=== PATIENT | male | born 1960 | race Caucasian/White ===

== ENCOUNTER 2018-09-25 14:39 | Emergency (ER) | payer BC ==
--- NOTE | 2018-09-25 16:23 | ER ---
Nurse's Notes [facility] Name: Mahamed Arriaga Age: 58 yrs Sex: Male : 1960 Arrival Date: 09/25/2018 Time: 14:39 Bed 6 Private MD: Gustavo Merlos Diagnosis: Nondisplaced fracture of distal phalanx of right great toe Presentation: 09/25 15:07 Presenting complaint: Patient states: R first toe pain, swelling and bruising that ss began yesterday after kicking furniture. Transition of care: patient was not received from another setting of care. Onset of symptoms was September 24, 2018. Risk Assessment: Do you want to hurt yourself or someone else? Patient reports no desire to harm self or others. Initial Sepsis Screen: Does the patient meet any 2 criteria? No. Patient's initial sepsis screen is negative. Does the patient have a suspected source of infection? No. Patient's initial sepsis screen is negative. Care prior to arrival: None. 15:07 Method Of Arrival: Ambulatory ss 15:07 Acuity: VERONIKA 4 ss Historical: - Allergies: 15:08 No Known Allergies; ss - Immunization history:: Adult Immunizations up to date. - Social history:: Smoking status: Patient/guardian denies using tobacco. - Ebola Screening: : Patient denies exposure to infectious person Patient denies travel to an Ebola-affected area in the 21 days before illness onset. Screenin:56 Abuse screen: Denies threats or abuse. Denies injuries from another. Nutritional ph screening: No deficits noted. Tuberculosis screening: No symptoms or risk factors identified. Fall Risk None identified. Assessment: 15:30 General: Appears in no apparent distress. comfortable, well groomed, Behavior is calm, ph cooperative, appropriate for age. Pain: Complains of pain in right first toe. Neuro: Level of Consciousness is awake, alert, obeys commands, Oriented to person, place, time, situation. Cardiovascular: Capillary refill < 3 seconds in bilateral fingers Patient's skin is warm and dry. Respiratory: Airway is patent Respiratory effort is even, unlabored. Derm: Skin is intact, Skin is pink, warm \T\ dry. Bruising that is dark purple, green, on right second toe and right first toe. Musculoskeletal: Circulation, motion, and sensation intact. Range of motion: intact in all extremities, Swelling present in right first toe. Vital Signs: 15:06 BP 138 / 90; Pulse 77; Resp 15; Temp 97.5(TE); Pulse Ox 97% on R/A; Weight 106.59 kg ss (R); Height 5 ft. 9 in. (175.26 cm); Pain 4/10; 15:06 Body Mass Index 34.70 (106.59 kg, 175.26 cm) ED Course: 14:39 Patient arrived in ED. sb2 14:40 Gustavo Merlos MD is Private Physician. sb2 15:06 Arm band placed on left wrist. ss 15:08 Triage completed. ss 15:10 Dhiraj Salinas PA is PHCP. cp 15:10 Raymond Chavez MD is Attending Physician. cp 15:10 Osorio Leach, RN is Primary Nurse. sg 16:02 XRAY Foot RIGHT 3 View In Process Unspecified. EDMS 16:22 Gustavo Merlos MD is Referral Physician. cp 16:25 Silver tape plantar aspect of right first toe, plantar aspect of right second toe, right dh3 first toe and right second toe Ortho shoe applied to right foot. 16:58 Patient has correct armband on for positive identification. Bed in low position. Call ph light in reach. 16:58 No provider procedures requiring assistance completed. Patient did not have IV access ph during this emergency room visit. Administered Medications: No medications were administered Outcome: 16:23 Discharge ordered by MD. cp 16:58 Discharged to home ambulatory, with significant other. ph 16:58 Condition: good 16:58 Discharge instructions given to patient, Instructed on discharge instructions, follow up and referral plans. medication usage, Demonstrated understanding of instructions, follow-up care, medications, Prescriptions given X 2. 16:59 Patient left the ED. ph Signatures: Dispatcher [employer] EDMS Osorio Leach RN RN Roseann Mcneal RN RN Betty Mckenzie RN RN Dhiraj Salinas PA PA cp Herrera, [facility] [place] sb2
--- NOTE | 2018-09-25 16:23 | EDPHYS ---
Physician Documentation [facility] Name: Mahamed Arriaga Age: 58 yrs Sex: Male : 1960 Arrival Date: 09/25/2018 Time: 14:39 Bed 6 Private MD: Gustavo Merlos ED Physician Raymond Chavez HPI: 09/25 15:20 This 58 yrs old Male presents to ER via Ambulatory with complaints of Toe cp Injury. 15:20 The patient presents with an injury, pain, that is acute. The complaints affect the cp right first toe. Context: resulted from the patient kicking, furniture. 15:20 Onset: The symptoms/episode began/occurred yesterday. cp 15:20 Associated signs and symptoms: Pertinent negatives: calf tenderness, fever, numbness, cp warmth. Historical: - Allergies: 15:08 No Known Allergies; ss - Immunization history:: Adult Immunizations up to date. - Social history:: Smoking status: Patient/guardian denies using tobacco. - Ebola Screening: : Patient denies exposure to infectious person Patient denies travel to an Ebola-affected area in the 21 days before illness onset. ROS: 15:25 Constitutional: Negative for body aches, chills, fever. cp 15:25 Eyes: Negative for injury, pain, redness, and discharge. cp 15:25 Cardiovascular: Negative for chest pain. 15:25 Respiratory: Negative for cough, wheezing. 15:25 Abdomen/GI: Negative for abdominal pain, nausea, vomiting, and diarrhea. 15:25 MS/extremity: Positive for ecchymosis, pain, swelling, tenderness, of the right first toe, Negative for paresthesias. 15:25 All other systems are negative. Exam: 15:33 Constitutional: The patient appears in no acute distress, alert, awake, non-toxic, well cp developed, well nourished. 15:33 Head/Face: Normocephalic, atraumatic. cp 15:33 Eyes: Periorbital structures: appear normal, Conjunctiva: normal, no exudate, no injection, Lids and lashes: appear normal, bilaterally. 15:33 ENT: External ear(s): are unremarkable, Nose: is normal, Mouth: is normal, Posterior pharynx: Airway: no evidence of obstruction, patent. 15:33 Chest/axilla: Inspection: normal. 15:33 Cardiovascular: Rate: normal. 15:33 Respiratory: the patient does not display signs of respiratory distress, Respirations: normal. 15:33 Abdomen/GI: Exam negative for discomfort, distension, guarding, Inspection: abdomen appears normal. 15:33 Musculoskeletal/extremity: Extremities: grossly normal except: noted in the right first toe: ecchymosis, pain, swelling, tenderness, There is no evidence of decreased ROM, deformity, Perfusion: the extremity is normally perfused throughout, Sensation intact. 15:33 Skin: cellulitis, is not appreciated, no rash present. Vital Signs: 15:06 BP 138 / 90; Pulse 77; Resp 15; Temp 97.5(TE); Pulse Ox 97% on R/A; Weight 106.59 kg ss (R); Height 5 ft. 9 in. (175.26 cm); Pain 4/10; 15:06 Body Mass Index 34.70 (106.59 kg, 175.26 cm) Procedures: 16:35 Splinting: Splint applied to right foot using post op shoe, nile taping of toes. cp applied by tech. Examined by me, post splint application: neurovascular intact, Patient tolerated well. MDM: 15:11 Patient medically screened. cp 16:21 Data reviewed: vital signs, nurses notes, radiologic studies, plain films. cp 16:21 Differential diagnosis: fracture, gout, cellulitis, contusion. Test interpretation: by ED physician or midlevel provider: plain radiologic studies. Counseling: I had a detailed discussion with the patient and/or guardian regarding: the historical points, exam findings, and any diagnostic results supporting the discharge/admit diagnosis, radiology results, the need for outpatient follow up, a family practitioner, to return to the emergency department if symptoms worsen or persist or if there are any questions or concerns that arise at home. Response to treatment: the patient's symptoms have markedly improved after treatment, and as a result, I will discharge patient. 09/25 15:15 Order name: XRAY Foot RIGHT 3 View; Complete Time: 16:46 cp 09/25 16:46 Interpretation: Report reviewed. 09/25 16:13 Order name: Post-op shoe; Complete Time: 16:32 cp 09/25 16:13 Order name: Misc. Order: nile tape toes; Complete Time: 16:32 cp Administered Medications: No medications were administered Disposition: 09/25/18 16:23 Discharged to Home. Impression: Nondisplaced fracture of distal phalanx of right great toe. - Condition is Stable. - Discharge Instructions: Toe Fracture. - Prescriptions for Anaprox DS 550 mg Oral Tablet - take 1 tablet by ORAL route every 12 hours As needed; 20 tablet. Tramadol 50 mg Oral Tablet - take 1 tablet by ORAL route every 8 hours As needed as needed; 20 tablet. - Medication Reconciliation Form, Thank You Letter, Antibiotic Education, Prescription Opioid Use form. - Follow up: Gustavo Merlos MD; When: 1 week; Reason: Recheck today's complaints. - Problem is new. - Symptoms have improved. Addendum: 09/26/2018 18:45 Co-signature as Attending Physician, Raymond Chavez MD. g s Signatures: Dispatcher [employer] EDMS Roseann Mcneal RN RN ss Hall, Patricia, RN RN ph Dhiraj Salinas, PA PA cp Raymond Chavez MD MD Corrections: (The following items were deleted from the chart) 09/25 16:47 16:23 09/25/2018 16:23 Discharged to Home. Impression: Nondisplaced fracture of distal cp phalanx of right great toe. Condition is Stable. Forms are Medication Reconciliation Form, Thank You Letter, Antibiotic Education, Prescription Opioid Use. Follow up: Gustavo Merlos; When: 1 week; Reason: Recheck today's complaints. Problem is new. Symptoms have improved. cp 16:59 16:47 09/25/2018 16:23 Discharged to Home. Impression: Nondisplaced fracture of distal ph phalanx of right great toe. Condition is Stable. Discharge Instructions: Toe Fracture. Prescriptions for Anaprox DS 550 mg Oral Tablet - take 1 tablet by ORAL route every 12 hours As needed; 20 tablet, Tramadol 50 mg Oral Tablet - take 1 tablet by ORAL route every 8 hours As needed as needed; 20 tablet. and Forms are Medication Reconciliation Form, Thank You Letter, Antibiotic Education, Prescription Opioid Use. Follow up: Gustavo Merlos; When: 1 week; Reason: Recheck today's complaints. Problem is new. Symptoms have improved. cp
--- NOTE | 2018-09-25 16:42 | RAD REPORT ---
EXAM DESCRIPTION: RAD - Foot Right 3 View - 09/25/2018 4:02 pm CLINICAL HISTORY: Right foot pain status post injury FINDINGS: Minimally displaced fracture involves the base of the first distal phalanx. Additional non displaced fracture of the first terminal tuft suspected. No dislocation seen
[2018-09-25 17:21] VITALS: BP 138/90; TEMP 97.5; O2SAT 97
== END 2018-09-25 16:59 | disposition home or self-care (01) ==
LOC: ER 14:39
DX: S92.424A Nondisplaced fracture of distal phalanx of right great toe, initial encounter for closed fracture (principal); W22.03XA Walked into furniture, initial encounter; Y93.9 Activity, unspecified; Y92.9 Unspecified place or not applicable
CPT/HCPCS: 99283

== ENCOUNTER 2024-04-20 10:19 | Emergency (ER) | payer BC ==
--- OUTSIDE RECORDS SUMMARY | 2024-04-20 10:22 | XMS REPORT | Continuity of Care Document ---
Author Name Unknown Address 1200 [facility] [address] [facility] Address 1200 [facility]. 1 495 [place] [address] Care Team Providers Care Instant Printer Operator Name Role Phone Maria L Castorena Cardiology Attending Clinician Unavailable Pete Marquez Admitting Clinician Unavailable Payers Payer Name Policy Type Policy Number Effective Date Expirati on Date Source Allergies, Adverse Reactions, Alerts Allergy Name Allergy Type Status Severity Reaction(s) Onset Date Inactive Date Treating Clinician Comments Source No Known Allergie s DA Active U 01-26 00:00: 00 [facility] Encounters Start Date/Time End Date/Time Encounter Type Admission Type Attending Clinicians Care Facility Care Department Encounter ID Source 2024-01-30 10:34:00 2024-01-31 10:39:00 Inpatient Maria L Flores [facility] MEDI.01 [id number] [facility] 2021-07-18 00:00:00 2021-07-18 00:00:00 Outpatient PRIV PRIV [id number] [facility] Results Test Description Test Time Test Comments Results Result Co mments Source CBC W/AUTO [id number] 05:21:00* Test Item Value Reference Range Interpretation Comme nts WHITE BLOOD CELL (test code = WBC) 7.9 K/mm3 3.5-11.0 N RED BLOOD CELL (test code = RBC) 4.47 M/mm3 4.70-6.10 L HEMOGLOBIN (test code = HGB) 14.2 G/DL 12.3-15.9 N HEMATOCRIT (test code = HCT) 40.8 % 35.8-46.7 N MEAN CELL VOLUME (test code = MCV) 91.3 Fl 86.3-98.9 N MEAN CELL HGB (test code = MCH) 31.8 pg 28.9-34.4 N MEAN CELL HGB CONCETRATION (test code = MCHC) 34.8 G/DL 32.1-34.5 H RED CELL DISTRIBUTION WIDTH (test code = RDW) 12.4 SD 11.5-14.5 N PLATELET COUNT (test code = PLT) 203 K/mm3 150-450 N MEAN PLATELET VOLUME (test c ode = MPV) 10.00 fL 7.0-9.6 H NEUTROPHIL % (test code = NT%) 60.8 % 40-76 N IMMATURE GRANULOCYTE % (test code = IG%) 0.4 % 0.0-5.0 N LYMPHOCYTE % (test code = LY%) 24.3 % 20.5-51.1 N MONOCYTE % (test code = MO%) 10.3 % 1.7-9.3 H EOSINOPHIL % (test code = EO%) 3.6 % 0.0-6.0 N BASOPHIL % (test code = BA%) 0.6 % 0.0-2.0 N NUCLEATED RBC % (test code = NRBC%) 0.0 /100WBC% 0.0-1.0 N NEUTROPHIL # (test code = NT#) 4.8 K/mm3 1.8-7.6 N IMMATURE GRANULOCYTE # (test code = IG#) 0.03 x10 3/uL 0.00-0.03 N LYMPHOCYTE # (test code = LY#) 1.9 K/mm3 0.6-3.0 N MONOCYTE # (test code = MO#) 0.8 K/mm3 0.2-1.5 N EOSINOPHIL # (test code = EO#) 0.3 K/mm3 0.0-0.4 N BASOPHIL # (test code = BA#) 0.1 K/mm3 0.0-0.2 N NUCLEATED RBC # (test code = NRBC#) 0.0 K/mm3 0.00-0.01 N COAGULATION TIME [id number] 12:44:00* Test Item Value Reference Range Interpretation Comme nts COAGULATION TIME ACTIVATED ( test code = ACT) 343 SEC 110-182 H COMPREHENSIVE METABOLIC [id number] 11:36:00* Test Item Value Reference Range Interpretation Comme nts SODIUM (test code = NA) 142 mmol/L 136-145 N POTASSIUM (test code = K) 4.1 mmol/L 3.4-5.0 N CHLORIDE (test code = CL) 103 mmol/L 98-107 N CARBON DIOXIDE (test code = CO2) 27 mmol/L 21-32 N ANION GAP (test code = GAP) 12 GAP calc 4-15 N GLUCOSE (test code = GLU) 113 MG/DL 70-110 H BLOOD UREA NITROGEN (test code = BUN) 14 MG/DL 7-18 N GLOMERULAR FILTRATION RATE (test code = GFR) >=60 max estimate estGFR >60 The Glomerular Filtration Rate is a calculated parameterbased on serum Creatinine, patient age and sex. GFR valuesless than 60 mL/min/1.73 square meters are indicative ofChronic Kidney Disease. Values less than 15 mL/min/1.73square meters indicate Kidney failure. The calculation forGFR is based on the CKD-EPI (2020) calculation. This formulais race indifferent and is the recommended formula for GFRby the National Kidney Foundation for Adults.The GFR will not calculate if the sex is unknown or if thepatient's age is <18 years. CREATININE (test code = CREAT) 1.0 MG/DL 0.6-1.0 N TOTAL PROTEIN (test code = PROT) 8.3 G/DL 6.4-8.2 H ALBUMIN (test code = ALB) 4.1 G/DL 3.4-5.0 N GLOBULIN (test code = GLOB) 4.2 GM/dL ALBUMIN/GLOBULIN RATIO (test code = A/G) 1.0 RATIO 1.2-2.2 L CALCIUM (test code = CA) 9.3 MG/DL 8.5-10.1 N BILIRUBIN TOTAL (test code = BILT) 0.6 MG/DL 0.0-1.0 N SGOT/AST (test code = AST) 23 Unit/L 15-37 N SGPT/ALT (test code = ALT) 41 Unit/L 30-65 N ALKALINE PHOSPHATASE TOTAL (test code = ALKP) 66 Unit/L 50-136 N LIPID PROFILE (CORONARY RISK)2024-01-30 11:36:00* Test Item Value Reference Range Interpretation Comme nts TRIGLYCERIDES (test code = TRIG) 104 MG/DL 0-150 N CHOLESTEROL (test code = CHOL) 129 MG/DL 133-200 L CHOLESTEROL/HDL RATIO (test code = CHOLHDL) 3.31 RATIO See_Comment RISK ASSOC IATED WITH CHOL/HDL RATIOS: RISK MALE FEMALE1/2 AVERAGE 3.43 3.27AVERAGE 4.97 4.442X AVERAGE 9.55 7.053X AVERAGE 23.39 11.04 NOTE THAT THE REFERENCE VALUE IS RELATED TO RISK LEVELS ASRECOMMENDED BY THE [facility]. [Automated message] The system which generated this result transmitted reference range: 0-. The reference range was not used to interpret this result as normal/abnormal. HDL CHOLESTEROL (test code = HDL) 39 MG/DL See_Comment L [Automated Saranas] The system which generated this result transmitted reference range: 60-. The reference range was not used to interpret this result as normal/abnormal. NON-HDL CHOLESTEROL (test code = NHDL) 90 mg/dL <130 LIPOPROTEIN LDL (test code = LDL) 80 MG/DL 0-129 N LDL/HDL (test code = LDL/HDL) 2.05 Ratio See_Comment N [Automated Saranas] The system which generated this result transmitted reference range: 1.48-3.22 Avg. The reference range was not used to interpret this result as normal/abnormal. [id number] 11:36:00* Test Item Value Reference Range Interpretation Comme nts MAGNESIUM (test code = MAG) 2.0 MG/DL 1.8-2.4 N PROTHROMBIN [id number] 11:21:00* Test Item Value Reference Range Interpretation Comme nts PT PATIENT (test code = PTP) 12.1 SECONDS 9.3-12.9 N INTERNATIONAL NORMAL RATIO (test code = INR) 1.10 INR Unit 0.8-1.2 N TARGET INR BY INDICATION Indication INR1. Prophylaxis of venous thrombosis 2.0 - 3.0 (orthopedic surgery), Prophylaxis of venous thrombosis (other than high-risk surgery), Treatment of Deep Vein Thrombosis/Pulmonary Embolism, Prevention of systemic embolism - Tissue heart valves, Acute Myocardial Infarction (to prevent systemic embolism), Valvular heart disease, Acute Myocardial Infarction (to prevent systemic embolism), Valvular heart disease, Atrial Fibrillation, Bileaflet mechanical valve in aortic position.2. Mechanical prosthetic valves (high risk), 2.5 - 3.5 Presence of Lupus Anticoagulant or Antiphospholipid Antibodies, Prevention of systemic embolism - Acute Myocardial Infarction (to prevent recurrent infarct). CBC W/AUTO [id number] 11:10:00* Test Item Value Reference Range Interpretation Comme nts WHITE BLOOD CELL (test code = WBC) 7.2 K/mm3 3.5-11.0 N RED BLOOD CELL (test code = RBC) 5.08 M/mm3 4.70-6.10 N HEMOGLOBIN (test code = HGB) 15.6 G/DL 12.3-15.9 N HEMATOCRIT (test code = HCT) 47.5 % 35.8-46.7 H MEAN CELL VOLUME (test code = MCV) 93.5 Fl 86.3-98.9 N MEAN CELL HGB (test code = MCH) 30.7 pg 28.9-34.4 N MEAN CELL HGB CONCETRATION (test code = MCHC) 32.8 G/DL 32.1-34.5 N RED CELL DISTRIBUTION WIDTH (test code = RDW) 12.2 SD 11.5-14.5 N PLATELET COUNT (test code = PLT) 227 K/mm3 150-450 N MEAN PLATELET VOLUME (test c ode = MPV) 9.70 fL 7.0-9.6 H NEUTROPHIL % (test code = NT%) 65.3 % 40-76 N IMMATURE GRANULOCYTE % (test code = IG%) 0.3 % 0.0-5.0 N LYMPHOCYTE % (test code = LY%) 22.0 % 20.5-51.1 N MONOCYTE % (test code = MO%) 8.1 % 1.7-9.3 N EOSINOPHIL % (test code = EO%) 3.5 % 0.0-6.0 N BASOPHIL % (test code = BA%) 0.8 % 0.0-2.0 N NUCLEATED RBC % (test code = NRBC%) 0.0 /100WBC% 0.0-1.0 N NEUTROPHIL # (test code = NT#) 4.7 K/mm3 1.8-7.6 N IMMATURE GRANULOCYTE # (test code = IG#) 0.02 x10 3/uL 0.00-0.03 N LYMPHOCYTE # (test code = LY#) 1.6 K/mm3 0.6-3.0 N MONOCYTE # (test code = MO#) 0.6 K/mm3 0.2-1.5 N EOSINOPHIL # (test code = EO#) 0.3 K/mm3 0.0-0.4 N BASOPHIL # (test code = BA#) 0.1 K/mm3 0.0-0.2 N NUCLEATED RBC # (test code = NRBC#) 0.0 K/mm3 0.00-0.01 N Notes Date/Time Note Provider Source 2024-01-31 09:39:00 [id number] 7gqA3/cUkRSzJFg5LFJxd47EhrB9217-63-54J16:39:00 [facility])Hospitalist Discharge SummaryREPORT#:[id number] REPORT STATUS: SignedREPORT INITIALIZATION DATE:01/31/24 TIME:938 PATIENT: SHEMAR GOODE UNIT #: [id number]#: [id number] [address] AGE: 64 SEX: M ATTEND: Maria L Castorena MD CardiologyADM AUTHOR: Lucía Allison PAREPT SERVICE DT/TIME: 01/31/24 0939* ALL edits or amendments must be made on the electronic/computer document * Lucía Allison 01/31/24 0939:General InformationDate of admission:Observation Start Date: 01/30/24Date of admission: 01/30/24 Discharge date: 01/31/24Discharge diagnosis:CAD s/p LHC with PCI to LAD 01/30/24ypertensionHyperlipidemiaHx of COURTNEY s/p R ICA stentHx of TIA Hospital course:64 y/o male with PMHx of HTN, HLD, carotid artery stenosis s/p R ICA stent placement, TIA is admitted to the hospital for postprocedural monitoring s/p LHCwith PCI to LAD 01/30/[address] Castorena. Pt had a recent abnormal nuclear stress test and had a scheduled LHC here, found to have a LAD lesion with PCI placed. He also had a recent echo done as outpatient that showed preserved LVEF, no need to repeat echo at this time. Pt reports he is doing well, denies any complaints. No chest pain or SOB. Pt was monitored under continuoustelemetry overnight. He has remained asymptomatic and was cleared for discharge by cardiology. He is already on DAPT with BB, ARB, and statin at home. Will increase his atorvastatin to high intensity dose of 40mg. He was also given cardiac rehab referral. Will DC home with close PCP and Cardiology follow up. Med Rec Med RecDischarge meds:Stop taking the following medications:ATORVASTATIN (LIPITOR) 20 MG TAB 20 MILLIGRAM ORAL DAILY. Continue taking these medications:CARVEDILOL (COREG) 25 MG TAB 25 MILLIGRAM ORAL TWICE DAILY WITH MEALS. CLOPIDOGREL (PLAVIX) 75 MG TAB 75 MILLIGRAM ORAL DAILY. amLODIPine (NORVASC) 10 MG TAB 10 MILLIGRAM ORAL DAILY. LOSARTAN (COZAAR) 100 MG TAB 100 MILLIGRAM ORAL DAILY. ASPIRIN (ASPIRIN) 81 MG TAB.CHEW 81 MILLIGRAM ORAL DAILY. MULTIVITAMIN/MIN/IRON/FA/CA/LYCOPENE (CENTRUM ULTRA MEN'S) 8 MG IRON-200 MCG-600MCG TAB 1 EACH ORAL DAILY. Start taking the following new medications:ATORVASTATIN (LIPITOR) 40 MG TAB 40 MILLIGRAM ORAL DAILY. Qty = 30 No Refills ObjectiveVS/I OLast Documented: Result Date Time Pulse Ox 97 01/30 934 B/P 138/85 01/30 934 B/P Mean 102.5 01/30 0934 O2 Delivery Room air 01/30 934 Pulse 64 01/30 934 Resp 16 01/30 934 Temp 97.5 01/30 0737 General appearance: alert, awake, no acute distressHead/Eyes: atraumatic, normocephalicENT: moist mucosal membranes, normal dentitionCardiovascular: normal heart sounds, regular rate rhythmRespiratory: symmetric expansion, no distressAbdomen: non-tender, softExtremities: moves all, no edemaNeuro/KILN BURNER: alert, normal speechPsychiatry: normal affect, normal mood ResultsFindings/Data:Laboratory Tests: 01/30 01/29 0434 1043 Chemistry Sodium (136 - 145 mmol/L) 139 Potassium (3.4 - 5.0 mmol/L) 3.8 Chloride (98 - 107 mmol/L) 105 Carbon Dioxide (21 - 32 mmol/L) 24 Anion Gap (4 - 15 GAP calc) 10 BUN (7 - 18 MG/DL) 13 Creatinine (0.6 - 1.0 MG/DL) 0.9 Glomerular Filtr Rate (>60 estGFR) >=60 max estimate Glucose (70 - 110 MG/DL) 104 Calcium (8.5 - 10.1 MG/DL) 8.1 L Coagulation Activated Coag Time (110 - 182 SEC) 343 H Hematology WBC (3.5 - 11.0 K/mm3) 7.9 RBC (4.70 - 6.10 M/mm3) 4.47 L Hgb (12.3 - 15.9 G/DL) 14.2 Hct (35.8 - 46.7 %) 40.8 MCV (86.3 - 98.9 Fl) 91.3 MCH (28.9 - 34.4 pg) 31.8 MCHC (32.1 - 34.5 G/DL) 34.8 H RDW (11.5 - 14.5 SD) 12.4 Plt Count (150 - 450 K/mm3) 203 MPV (7.0 - 9.6 fL) 10.00 H Neut % (Auto) (40 - 76 %) 60.8 Lymph % (Auto) (20.5 - 51.1 %) 24.3 Swift % (Auto) (1.7 - 9.3 %) 10.3 H Eos % (Auto) (0.0 - 6.0 %) 3.6 Baso % (Auto) (0.0 - 2.0 %) 0.6 Neut # (Auto) (1.8 - 7.6 K/mm3) 4.8 Lymph # (Auto) (0.6 - 3.0 K/mm3) 1.9 Swift # (Auto) (0.2 - 1.5 K/mm3) 0.8 Eos # (Auto) (0.0 - 0.4 K/mm3) 0.3 Baso # (Auto) (0.0 - 0.2 K/mm3) 0.1 Abs Immat Gran (auto) (0.00 - 0.03 x10 3/uL) 0.03 Immature Gran % (0.0 - 5.0 %) 0.4 Nucleated RBC % (0.0 - 1.0 /100WBC%) 0.0 Discharge Instructions PCPPCP follow-up:PCP: Maria L Castorena MD Cardiology Discharge to: Home/Self CareAdditional Discharge Routines: PCP Follow-Up, Revenue Director Follow-UpDiet: CardiacDischarge management: face to face encounter, discharge time 35 minutes Follow-up AppointmentsPCP follow-up: PCP: Maria L Castorena MD Cardiology PCP follow up timeframe: In 5 daysConsulting provider 1: Provider 1: Maria L Castorena MD Cardiology Specialty: CardiologyInterventional Consult follow up timeframe: In 5 days Pete Marquez 01/31/24 2049:Attestations Physician AttestationAgree w/findings plan:Appreciate note from NPAgree with the history and physical findingsLab works notedImaging noted as wellFindings were discussed with the CARLTON and Staff at 0957 at 2050 RPT #: [id number] OF REPORT DSDischarge iyufcdh9875-57-12Q44:39:00L.[id number] ailable for patient lsmgJPSRTJEINXFXLZ8104-67-75J53:57:48 [facility] 2024-01-31 04:49:00 [id number] 6uDBS4TJv+lr8yV9y7l+cWnaTCGFp DRECXa5vAwYyruLo86JmISLKlAl0774-35-21Z57:49:52242 1-[address] [address] PATIENT NAME: SHEMAR GOODE ADMIT DATE: 01/30/24ACCOUNT NO: [id number] ROOM NO: .S201 AGE: 64 REPORT TYPE: eELECTROCARDIOGRAM SEX: M ADMITTING PHYSICIAN: Pete Marquez MD ATTENDING PHYSICIAN: Maria L Castorena MD Order:[id number] Reason : CAD/PCI Test Date/Time Stamp:[place] Jan 31 2024 04:49:21Blood Pressure : / mmHGVent. Rate : 058 BPM Atrial Rate : 058 BPM P-R Int : 180 ms QRS Dur : 102 ms QT Int : 462 ms P-R-T Axes : 044 073 060 degrees QTc Int : 453 ms Sinus bradycardiaOtherwise normal ECGWhen compared with ECG of 31-JAN-2024 04:48,No significant change was foundConfirmed by MARIA L CASTORENA ([id number]) on 01/31/2024 7:22:40 AM Referred By: Maria L Castorena Confirmed by:MARIA L CASTORENA at 0722 PATIENT NAME: SHEMAR GOODE .[id number] AVAvailable for patient nfriKRCWGRKASDQRTU2173-89-40U21:23:05 [facility] 2024-01-31 04:48:00 [id number]+O/GIDg4Mla aBVpAvOv0tUiTk8hlc2dxBDo+2z6156-71-26R15:48:[address] [address] PATIENT NAME: SHEMAR GOODE ADMIT DATE: 01/30/24ACCOUNT NO: [id number] ROOM NO: L.S201 AGE: 64 REPORT TYPE: eELECTROCARDIOGRAM SEX: M ADMITTING PHYSICIAN: Pete Marquez MD ATTENDING PHYSICIAN: Maria L Castorena MD Order:[id number] Reason : CAD/PCI Test Date/Time Stamp:[place] Jan 31 2024 04:48:28Blood Pressure : / mmHGVent. Rate : 056 BPM Atrial Rate : 056 BPM P-R Int : 168 ms QRS Dur : 096 ms QT Int : 466 ms P-R-T Axes : 072 074 062 degrees QTc Int : 449 ms Sinus bradycardiaOtherwise normal ECGWhen compared with ECG of 30-JAN-2024 13:20,No significant change was foundConfirmed by MARIA L CASTORENA ([id number]) on 01/31/2024 7:22:24 AM Referred By: Maria L Castorena Confirmed by:MARIA L CASTORENA at 0722 PATIENT NAME: SHEMAR GOODE .[id number] AVAvailable for patient esttBRUYQXCNDLQIVA3543-36-67J72:22:44 [facility] 2024-01-30 17:40:00 [id number] Fml114ErDzjb2eC4IEbHY7nzCxvrc 5sKl3TNUSEcJm3pc36fiwj5iobG5691-90-76Q77:40:00 [facility] ([facility])Hospitalist History PhysicalREPORT#:[id number] REPORT STATUS: SignedREPORT INITIALIZATION DATE:01/30/24 TIME:1739 PATIENT: SHEMAR GOODE UNIT #: [id number]#: [id number] [address] [birth year] AGE: 64 SEX: M ATTEND: Maria L Castorena MD CardiologyADM AUTHOR: Lucía Allison PAREPT SERVICE DT/TIME: 01/30/241739* ALL edits or amendments must be made on the electronic/computer document * Lucía Allison 01/30/241739:History of Present Illness HPIChief complaint:chest painHPI:64 y/o male with PMHx of HTN, HLD, carotid artery stenosis s/p R ICA stent placement, TIA is admitted to the hospital for postprocedural monitoring s/p LHCwith PCI to LAD today with Cardiology Dr. Dabaghi. Pt had a recent abnormal nuclear stress test and had a scheduled LHC today, found to have a LAD lesion with PCI placed. Pt reports he is doing well, denies any complaints. No chest pain or SOB. History Family HistoryFamily history:Reports: Hypertension. Social HistorySmoking status for patients 13 years old or older: Never Smoker Medication/Allergy-Vaccine HxMedications:Home Medications:CARVEDILOL (COREG) 25 MG PO BID MEALS CLOPIDOGREL (PLAVIX) 75 MG PO DAILY ATORVASTATIN (LIPITOR) 20 MG PO DAILY amLODIPine (NORVASC) 10 MG PO DAILY LOSARTAN (COZAAR) 100 MG PO DAILY ASPIRIN 81 MG PO DAILY MULTIVITAMIN/MIN/IRON/FA/CA/LYCOPENE (CENTRUM ULTRA MEN'S) 1 EACH PO DAILY Allergies:Coded Allergies:No Known Allergies (01/27/24) Review of SystemsConstitutional:Denies: chills, fever. Skin:Denies: bruising, rash. Eyes:Denies: visual loss/blurred, eye pain. ENT:Denies: nasal congestion, sore throat. Respiratory:Denies: productive cough (sputum), SOB. Cardiovascular:Denies: chest pain, palpitations. GI:Denies: nausea, vomiting. :Denies: dysuria, hematuria. Musculoskeletal:Denies: extremity pain, extremity swelling. Neuro:Denies: headache, syncope. OBJECTIVEVS/I O:Vital Signs Date Temp Pulse Resp B/P B/P Mean Pulse Ox FiO2 01/29 98.6 55-67 9-17 120-177/67-96 95-99 Last Documented: Result Date Time Pulse Ox 97 01/29 1515 B/P 142/78 01/29 1515 Pulse 61 01/29 1515 Resp 16 01/29 1515 O2 Delivery Room air 01/29 1300 Temp 98.6 01/29 1105 Patient Weight and BMI Weight (kg): 113.000 BMI: 35.7 Medications:Active Meds + DC'd Last 24 HrsAmlodipine Besylate (NORVASC) 10 MG DAILY PO Aspirin (ECOTRIN) 81 MG DAILY PO Clopidogrel Bisulfate (Plavix) 75 MG DAILY PO Losartan Potassium (COZAAR) 100 MG DAILY PO Atorvastatin Calcium (LIPITOR) 80 MG BEDTIME PO Carvedilol (COREG) 25 MG BID MEALS PO Acetaminophen (TYLENOL) 650 MG Q4H PRN PRN PO Hydrocodone Bitart/Acetaminophen (NORCO 5/325) 1 TAB Q4H PRN PRN PO Nitroglycerin (NITROSTAT) 0.4 MG Q5M PRN PRN SL Ondansetron HCl (ZOFRAN) 4 MG Q4H PRN PRN IV Sodium Chloride (0.9% Sodium Chloride) 1,000 ML .[id number] IV Fentanyl Citrate (SUBLIMAZE) 0 .STK-MED ONE .ROUTE (DC) Midazolam HCl (VERSED) 0 .STK-MED ONE .ROUTE (DC) Nitroglycerin/Dextrose (NITROGLYCERIN 200 MCG/ML DRIP) 250 ML .STK-MED ONE IV (DC) Clopidogrel Bisulfate (PLAVIX) 0 .STK-MED ONE .ROUTE (DC) Iopamidol (ISOVUE-300) 0 .STK-MED ONE .ROUTE (DC) Sodium Chloride (SODIUM CHLORIDE 0.9%) 100 ML .STK-MED ONE IV (DC) Adenosine (ADENOSCAN) 30 ML .STK-MED ONE IV (DC) Midazolam HCl (VERSED) 0 .STK-MED ONE .ROUTE (DC) Heparin Sodium (Porcine) (HEPARIN 1,000 UNITS/NS 500 ML) 1,500 ML .STK-MED ONE IV (DC) Midazolam HCl (VERSED) 0 .STK-MED ONE .ROUTE (DC) Fentanyl Citrate (SUBLIMAZE) 0 .STK-MED ONE .ROUTE (DC) Heparin Sodium (Porcine) (HEPARIN SODIUM) 0 .STK-MED ONE .ROUTE (DC) Lidocaine HCl (lidocaine HCL) 0 .STK-MED ONE .ROUTE (DC) Diazepam (VALIUM) 5 MG ONCALL PO (CKD) Diphenhydramine HCl (BENADRYL) 25 MG ONCALL PO (CKD) Sodium Chloride (0.9% Sodium Chloride) 1,000 ML ASDIR IV General appearance: alert, awake, no acute distressHead/Eyes: atraumatic, normocephalicENT: moist mucosal membranes, normal dentitionCardiovascular: normal heart sounds, regular rate rhythmRespiratory: symmetric expansion, no distressAbdomen: non-tender, softExtremities: moves all, no edemaNeuro/KILN BURNER: alert, normal speechPsychiatry: normal affect, normal mood ResultsFindings/Data:Laboratory Tests: 01/29 01/29 1043 0639 Chemistry Sodium (136 - 145 mmol/L) 142 Potassium (3.4 - 5.0 mmol/L) 4.1 Chloride (98 - 107 mmol/L) 103 Carbon Dioxide (21 - 32 mmol/L) 27 Anion Gap (4 - 15 GAP calc) 12 BUN (7 - 18 MG/DL) 14 Creatinine (0.6 - 1.0 MG/DL) 1.0 Glomerular Filtr Rate (>60 estGFR) >=60 max estimate Glucose (70 - 110 MG/DL) 113 H Calcium (8.5 - 10.1 MG/DL) 9.3 Magnesium (1.8 - 2.4 MG/DL) 2.0 Total Bilirubin (0.0 - 1.0 MG/DL) 0.6 AST (15 - 37 Unit/L) 23 ALT (30 - 65 Unit/L) 41 Total Alk Phosphatase (50 - 136 Unit/L) 66 Total Protein (6.4 - 8.2 G/DL) 8.3 H Albumin (3.4 - 5.0 G/DL) 4.1 Globulin (GM/dL) 4.2 Albumin/Globulin Ratio (1.2 - 2.2 RATIO) 1.0 L Triglycerides (0 - 150 MG/DL) 104 Cholesterol (133 - 200 MG/DL) 129 L LDL Cholesterol Measurd (0 - 129 MG/DL) 80 Non-HDL Cholesterol (<130 mg/dL) 90 HDL Cholesterol (60 MG/DL) 39 L LDL/HDL Ratio (1.48 - 3.22 Avg Ratio) 2.05 Cholesterol/HDL Ratio (0 RATIO) 3.31 Coagulation INR (0.8 - 1.2 INR Unit) 1.10 PT Patient/Control Mix (9.3 - 12.9 SECONDS) 12.1 Activated Coag Time (110 - 182 SEC) 343 H Hematology WBC (3.5 - 11.0 K/mm3) 7.2 RBC (4.70 - 6.10 M/mm3) 5.08 Hgb (12.3 - 15.9 G/DL) 15.6 Hct (35.8 - 46.7 %) 47.5 H MCV (86.3 - 98.9 Fl) 93.5 MCH (28.9 - 34.4 pg) 30.7 MCHC (32.1 - 34.5 G/DL) 32.8 RDW (11.5 - 14.5 SD) 12.2 Plt Count (150 - 450 K/mm3) 227 MPV (7.0 - 9.6 fL) 9.70 H Neut % (Auto) (40 - 76 %) 65.3 Lymph % (Auto) (20.5 - 51.1 %) 22.0 Swift % (Auto) (1.7 - 9.3 %) 8.1 Eos % (Auto) (0.0 - 6.0 %) 3.5 Baso % (Auto) (0.0 - 2.0 %) 0.8 Neut # (Auto) (1.8 - 7.6 K/mm3) 4.7 Lymph # (Auto) (0.6 - 3.0 K/mm3) 1.6 Swift # (Auto) (0.2 - 1.5 K/mm3) 0.6 Eos # (Auto) (0.0 - 0.4 K/mm3) 0.3 Baso # (Auto) (0.0 - 0.2 K/mm3) 0.1 Abs Immat Gran (auto) (0.00 - 0.03 x10 3/uL) 0.02 Immature Gran % (0.0 - 5.0 %) 0.3 Nucleated RBC % (0.0 - 1.0 /100WBC%) 0.0 Laboratory Tests 01/30/24 0639:[Embedded Image Not Available] Diagnosis, Assessment PlanFree Text A P:64 y/o male with PMHx of HTN, HLD, carotid artery stenosis s/p R ICA stent placement, TIA is admitted to the hospital for postprocedural monitoring s/p LHCwith PCI to LAD today with Cardiology Dr. Castorena #CAD s/p LHC with PCI to LAD 01/30/24Monitor under continuous telemetryContinue home DAPT, BB, ARBWill increase home atorvastatin to high intensity dose 40mgPt had recent echo done as outpatientGiven cardiac rehab referral #HypertensionContinue home amlodipine, coreg, losartanIV hydralazine PRN #HyperlipidemiaWill increase home atorvastatin to high intensity dose 40mg #Hx of COURTNEY s/p R ICA stentContinue home DAPT, statin #Hx of TIAContinue home DAPT, statin DVT prophylaxis with Lovenox Full code Pete Marquez 01/31/242046:Attestations Physician AttestationAgree w/findings plan:Appreciate note from NPAgree with the history and physical findingsLab works notedImaging noted as wellFindings were discussed with the CARLTON and Staff at 1755 at 2049 RPT #: [id number] OF REPORT HPHistory and physical xqkucpxxrqr5427-69-77Y45:40:00L.[id number] AVAvailable for patient wxhzGWVTCBRYOHCDVD1020-49-85K65:56:12 [facility] 2024-01-30 13:20:00 [id number] JT1cVvc99rJKfSu4DIMAo0C7NGoVG 57crgkpuLu0wU045+wF5HeASF+C8059-55-65G55:20:08479 0-0060 [facility] [id number] [place] [address] PATIENT NAME: SHEMAR GOODE ADMIT DATE: 01/30/24ACCOUNT NO: [id number] ROOM NO: [facility] AGE: 64 REPORT TYPE: eELECTROCARDIOGRAM SEX: M ADMITTING PHYSICIAN: Pete Marquez MD ATTENDING PHYSICIAN: Maria L Duncan Cardiology MD Mary Carmen Order:[id number] Reason : CAD/PCI Test Date/Time Stamp:ThuJan 30 2024 13:20:38Blood Pressure : / mmHGVent. Rate : 060 BPM Atrial Rate : 060 BPM P-R Int : 172 ms QRS Dur : 096 ms QT Int : 440 ms P-R-T Axes : 067 077 060 degrees QTc Int : 440 ms Normal sinus rhythmNormal ECGWhen compared with ECG of 30-JAN-2024 11:12,No significant change was foundConfirmed by MARIA L CASTORENA ([id number]) on 01/30/2024 2:12:20 PM Referred By: Maria L Castorena Confirmed by:MARIA L CASTORENA at 1412 PATIENT NAME: SHEMAR GOODE .[id number] AVAvailable for patient izvhKVTJYEHINETVIN8896-59-29O36:12:45 [facility] 2024-01-30 13:04:00 [id number] 628xYxnNDuHV8mEc9r8vjMRUJemeI sL4P+vcQcpk/iPXwmmpGIyBddXU0234-83-47Q97:04:15689 0-[address] [address] PATIENT NAME: SHEMAR GOODE ADMIT DATE: 01/30/24ACCOUNT NO: [id number] ROOM NO: [facility] AGE: 64 REPORT TYPE: OPERATIVE REPORT SEX: M ADMITTING PHYSICIAN: Pete Marquez MD ATTENDING PHYSICIAN: Maria L Castorena MD Cardiology OPERATION DATE: 01/30/2024 CARDIOLOGY CONSULTANTS: Maria L Castorena MD INDICATION FOR THE PROCEDURE: Angina, dyspnea, ischemia. TITLE OF PROCEDURES:1. Left heart catheterization.2. FFR of the LAD.3. Drug-eluting stent of the LAD. ESTIMATED BLOOD LOSS: Minimal. COMPLICATIONS: None. CONTRAST: 130 mL. ANESTHESIA: Conscious sedation with Versed and fentanyl. 1% lidocaine for local anesthesia. FINAL DIAGNOSIS: Calcified arteries. Single-vessel coronary artery disease, abnormal IFR 0.85, status post drug-eluting stent of the LAD. RECOMMENDATION: Observation overnight. PROCEDURE IN DETAIL: After informed consent, the patient was brought to the cardiac catheterization lab in a stable fasting nonsedated state. He was prepped and draped in the usual sterile fashion. After conscious sedation, 1% lidocaine was administered to the right common femoral artery area for local anesthesia. A 6-Armenian sheath was placed in the right common femoral artery using standard techniques and fluoroscopy. After heparinization, left coronary angiogram showed a small first septal and then a good size first diagonal. After that there is an area of plaquing eccentric with suspected significant disease. Right after the origin of the diagonal at the origin of a decent size septum, it looked like in different views around 85% and there is a calcium plaque right next to it. The rest of the LAD, circumflex, and ramus intermediusappears to be free of angiographic disease. Right coronary angiogram showed plaques 30% proximal, mid and distal is a large vessel that is dominant. Left ventricular angiogram showed ejection fraction of 60%. Left ventricular end-diastolic pressure of 22. No wall motion abnormalities or aortic valve gradient. We did a FFR/IFR on the LAD and with the IFR the pressure dropped to 0.85, which was highly significant, so decided to intervene on the LAD. The PATIENT NAME: SHEMAR GOODE guide that I used was a XB 3.5 LAD. The wire that was used was the Shirley Omniwire, which measured the IFR at 0.85 and I deployed the stent [employer] Synergy 3.5 x 16 at 14 atmospheres that resulted in 0% residual. There was someplaque shift to the septal without any symptoms or any arrhythmias. Nitroglycerin intracoronary was given and the patient tolerated the procedure well. No complications. Final angiogram shows great apposition of the stent, significant enlargement of the artery compared to before and the STACY flow remained 3 before and after the lesion went from 85%-0% residual. The right groin was sealed using Angio-Seal. There were no complications. The patient tolerated the procedure well, transferred back to the holding area to be admitted for observation overnight. Dictated By: Maria L Castorena MD Date Dictated: 01/30/2024 13:04:19Date Transcribed: 01/30/2024 20:07:20S/Maykel #: [id number] ID: [id number] by Maria L Castorena MD On 01/31/2024 07:25:21 AM at 0725 PATIENT NAME: SHEMAR GOODE [id number]:07:00L.[id number] lable for patient [id number]:26:05 [facility] 2024-01-30 11:12:00 [id number] XkQlRDMXhMXmrs+[id number]:12:[id number] 0-[address] [address] PATIENT NAME: SHEMAR GOODE ADMIT DATE: 01/30/24ACCOUNT NO: [id number] ROOM NO: MACI AGE: 64 REPORT TYPE: eELECTROCARDIOGRAM SEX: M ADMITTING PHYSICIAN: Pete Marquez MD ATTENDING PHYSICIAN: Maria L Castorena MD Order:[id number] Reason : PRE PROCEDURE Test Date/Time Stamp:[facility] Jan 30 2024 11:12:51Blood Pressure : / mmHGVent. Rate : 061 BPM Atrial Rate : 061 BPM P-R Int : 168 ms QRS Dur : 096 ms QT Int : 422 ms P-R-T Axes : 020 057 052 degrees QTc Int : 424 ms Normal sinus rhythmNormal ECGNo previous ECGs availableConfirmed by MARIA L CASTORENA ([id number]) on 01/30/2024 2:12:08 PM Referred By: Maria L Castorena Confirmed by:MARIA L CASTORENA at 1412 PATIENT NAME: SHEMAR GOODE .[id number] AVAvailable for patient [id number]:12:35 [facility] 2024-01-29 07:57:00 [id number] 9-[address] [address] PATIENT NAME: SHEMAR GOODE ADMIT DATE: ACCOUNT NO: [id number] ROOM NO: AGE: 64 REPORT TYPE: HISTORY AND PHYSICAL SEX: M ADMITTING PHYSICIAN: ATTENDING PHYSICIAN: Maria L Castorena MD Cardiology PATIENT NAME: SHEMAR GOODE ADMIT DATE:01/30/2024DMISSION DATE: 01/30/2024 14:00:00 CARDIOLOGY CONSULTANTS: Myself. REASON FOR ADMISSION: Symptomatic coronary artery disease, abnormal nuclearstress test for cardiac catheterization and possible revascularization. HISTORY OF PRESENT ILLNESS: Shemar is a 64-year-old patient who has been seeingid since October of 2018. The patient has known atherosclerotic cardiovasculardisease and has had previous carotid interventions in 2012. He has not had anyrecent coronary evaluation invasively. Noninvasively, he had a recent nuclearstress test to evaluate his symptoms and he was found to have frequent PVCs,severe inferior ischemia and cardiomegaly on the nuclear stress test, ejectionfraction was normal. Echocardiogram showed hypertensive changes. CarotidDoppler showed stable disease. Baseline EKG was normal. Holter monitoringshowed 2 short paroxysmal supraventricular tachycardia runs. Lower arterialDoppler examination was normal in 2020. The patient has been having worseningsymptoms of dyspnea that is angina equivalent and given the findings on thenuclear stress test and his symptoms, he is here for left heart catheterizationto assess for possible revascularization. The patient did have history ofstroke in the past and carotid disease and carotid interventions, detailed ofwhich are not available, but that has been stable. PAST MEDICAL HISTORY: Remarkable for hypertension, hyperlipidemia and COVID in04/2022. PAST SURGICAL HISTORY: Right carotid surgery intervention. ALLERGIES: CODEINE CAUSES NAUSEA AND VOMITING. MEDICATIONS: He takes aspirin 81 mg daily, clopidogrel 75 mg daily, nkvrytudoj98 mg daily, atorvastatin 20 mg daily, carvedilol 25 mg b.i.d., losartan 100 mgdaily. SOCIAL HISTORY: There is no history of smoking. The patient drinks alcoholsocially. There is no history of street drug use. FAMILY HISTORY: Positive for atherosclerotic cardiovascular disease. Fatherpassed away at age 69 of a heart attack. REVIEW OF SYSTEMS: Enclosed. No acute GI or symptoms. No TIAs or strokes. PATIENT NAME: SHEMAR GOODE PHYSICAL EXAMINATION:GENERAL: Reveals a pleasant 64-year-old patient in no acute distress.VITAL SIGNS: Blood pressure 140/86, pulse 65 and regular, respiratory rate 16and unlabored, temperature afebrile.HEENT: Head atraumatic, normocephalic.EYES AND ENT: Examination within normal for age.NECK: Supple. No jugular venous distention, bruits or lymphadenopathy. Normalupstroke. Right carotid endarterectomy site noted.LUNGS: Clear and resonant.HEART: Regular rate and rhythm, 1/6 systolic ejection murmur at the left lowersternal border. No gallops.ABDOMEN: Soft, obese, no tenderness, no organomegaly, no masses or bruits.EXTREMITIES: 2+ distal pulses. No edema, cyanosis or clubbing.NEUROLOGIC: Alert and oriented x3. Examination appears to be nonfocal. LABORATORY DATA: Pending. Noninvasive cardiovascular workup enclosed. IMPRESSION: This is a 64-year-old patient with known atheroscleroticcardiovascular disease, multiple cardiovascular risk factors, who comes in withworsening symptoms of dyspnea and abnormal nuclear stress test, high likelihoodof significant coronary artery disease. The patient is here for left heartcatheterization and possible revascularization. RECOMMENDATION: To proceed with the above-mentioned procedures. The risks andbenefits of the planned procedures were discussed in detail with the patient andavailable family members and he is willing to proceed. Rest as per orders. Dictated By: Maria L Castorena MD Date Dictated: 01/29/2024 07:57:26Date Transcribed: 01/29/2024 09:23:13SANGÉLICA/KAYLEIGH/ANUJob #: [id number] ID: [id number] and Edited by Maria L Castorena MD On 01/29/24 5:18:52 PM at 0519 PATIENT NAME: SHEMAR GOODE and physical [id number]:23:00L.[id number] VAvailable for patient [id number]:20:32 HCAPM
--- NOTE | 2024-04-20 11:59 | RAD REPORT ---
EXAM DESCRIPTION: RAD - Elbow Left 3 View - 04/20/2024 11:29 am CLINICAL HISTORY: Left elbow pain status post trauma FINDINGS: Nondisplaced radial head fracture. No dislocation
--- NOTE | 2024-04-20 12:00 | RAD REPORT ---
EXAM DESCRIPTION: RAD - Wrist Left 2 View - 04/20/2024 11:29 am CLINICAL HISTORY: Left wrist pain status post injury FINDINGS: No fracture or dislocation is seen. Limited two view series obtained If the patient continues to have symptoms to suggest an occult fracture then a followup plain film se berna in 7 days would be recommended
[2024-04-20] MEDS ORDERED: IBUPROFEN 200 MG TAB PO ONE (13:42)
[2024-04-20] MEDS ORDERED: IBUPROFEN 400 MG TAB ONE (13:43)
--- NOTE | 2024-04-20 13:47 | ER ---
Nurse's Notes [facility] Name: Mahamed Arriaga Age: 64 yrs Sex: Male : 1960 Arrival Date: 04/20/2024 Time: 10:19 Bed Treatment Private MD: Diagnosis: Fracture of head of radius;Fall on same level, unspecified;Sprain of carpal joint of left wrist Presentation: 04/20 11:05 Chief complaint: Patient states: Mechanical fall from standing on Thursday, reports left jl7 wrist and elbow pain, bruising noted to posterior aspect of left upper arm above elbow. Coronavirus screen: At this time, the client does not indicate any symptoms associated with coronavirus-19. Ebola Screen: No symptoms or risks identified at this time. Initial Sepsis Screen: Does the patient meet any 2 criteria? No. Patient's initial sepsis screen is negative. Does the patient have a suspected source of infection? No. Patient's initial sepsis screen is negative. Risk Assessment: Do you want to hurt yourself or someone else? Patient reports no desire to harm self or others. Onset of symptoms was April 18, 2024. 11:05 Method Of Arrival: Ambulatory jl7 11:05 Acuity: VERONIKA 4 jl7 Triage Assessment: 11:07 General: Appears in no apparent distress. uncomfortable, Behavior is calm, cooperative, jl7 appropriate for age. Pain: Complains of pain in left arm Pain currently is 1 out of 10 on a pain scale. Musculoskeletal: Range of motion: limited in left elbow Swelling absent. Injury Description: Bruise sustained to left arm. Historical: - Allergies: 11: No Known Allergies; jl7 - Home Meds: 11:07 Plavix Oral [Active]; jl7 - PMHx: 11:07 Hypertensive disorder; Hypercholesterolemia; cardiac stents; Right carotid stent; jl7 - Immunization history:: Adult Immunizations up to date. - Infectious Disease History:: Denies. - Social history:: Smoking status: Patient denies any tobacco usage or history of. - Family history:: not pertinent. Screenin:15 [facility] ED Fall Risk Assessment (Adult) History of falling in the last 3 months, ph including since admission Yes- single mechanical fall (1 pt) Confusion or Disorientation No (0 pts) Intoxicated or Sedated No (0 pts) Impaired Gait No (0 pts) Mobility Assist Device Used No (0 pt) Altered Elimination No (0 pt) Score/Fall Risk Level 0 - 2 = Low Risk Oriented to surroundings, Maintained a safe environment, Hourly rounding (assess needs \T\ fall precautionary measures) done. Abuse screen: Denies threats or abuse. Denies injuries from another. Nutritional screening: No deficits noted. Tuberculosis screening: No symptoms or risk factors identified. Assessment: 14:02 General: Appears in no apparent distress. Behavior is calm, cooperative. Pain: ph Complains of pain in left elbow. Neuro: Level of Consciousness is awake, alert, obeys commands, Oriented to person, place, time, situation. Derm: Skin is pink, warm \T\ dry. Vital Signs: 11:05 BP 118 / 75; Pulse 63; Resp 17; Temp 97.8; Pulse Ox 95% ; FiO2 2 %; Weight 111.13 kg; jl7 Height 5 ft. 10 in. ; Pain /; 14:04 BP 112 / 71; Pulse 64; Resp 18; Temp 98; Pulse Ox 96% on R/A; ph 11:05 Body Mass Index 35.15 (111.13 kg, 177.8 cm) jl7 11:05 Pain Scale: Adult jl7 ED Course: 10:23 Patient arrived in ED. im 10:26 Dhiraj Serna MD is Attending Physician. giancarlo 11:07 Triage completed. jl7 11:07 Arm band placed on right wrist. Patient placed in waiting room, Patient notified of jl7 wait time. 11:31 XRAY Elbow LEFT 3 view In Process Unspecified. EDMS 11:31 XRAY Wrist LEFT 2 view In Process Unspecified. EDMS 11:50 Patient placed in an exam room, on a stretcher. ll1 12:16 Betty Mckenzie, AMINATA is Primary Nurse. ph 13:15 Patient has correct armband on for positive identification. Bed in low position. Call light in reach. Side rails up X 1. 13:45 Ciaran Parra MD is Referral Physician. giancarlo 14:02 Orthoglass splint: posterior elbow Sling applied to left arm. ph 14:04 No provider procedures requiring assistance completed. Patient did not have IV access ph during this emergency room visit. Administered Medications: 14:01 Drug: Ibuprofen PO 600 mg PO once Route: PO; ph 14:04 Follow up: Response: No adverse reaction ph Medication: 13:15 VIS not applicable for this client. ph Outcome: 13:46 Discharge ordered by . giancarlo 14:04 Discharged to home ambulatory, 14:04 Condition: good 14:04 Discharge instructions given to patient, Instructed on discharge instructions, follow up and referral plans. medication usage, Demonstrated understanding of instructions, follow-up care, medications, Prescriptions given X 2, 14:05 Patient left the ED. ph Signatures: Dispatcher [employer] EDWI Dhiraj Serna MD MD cha Hall, Patricia, RN RN ph Enmanuel Mercado RN RN jl7 Alondra Bauer RN RN ll1 Melanie Hou Corrections: (The following items were deleted from the chart) 14:04 14:02 Orthoglass splint: ph ph
--- NOTE | 2024-04-20 13:47 | EDPHYS ---
Physician Documentation [facility] Name: Mahamed Arriaga Age: 64 yrs Sex: Male : 1960 Arrival Date: 04/20/2024 Time: 10:19 Bed Treatment Private MD: ED Physician Dhiraj Serna HPI: 04/20 13:40 This 64 yrs old Male presents to ER via Ambulatory with complaints of Arm giancarlo Injury. 13:40 The patient or guardian complains of decreased range of motion, injury, pain, swelling. giancarlo The complaints affect the left elbow. Context: The problem was sustained at home, outdoors, resulted from a fall. Onset: The symptoms/episode began/occurred 1 day(s) ago. Treatment prior to arrival includes: no previous treatment. Modifying factors: The symptoms are alleviated by heat. Associated signs and symptoms: The patient has no apparent associated signs or symptoms. Severity of symptoms: At their worst the symptoms were mild, moderate, in the emergency department the symptoms are unchanged. The patient has not experienced similar symptoms in the past. Historical: - Allergies: : No Known Allergies; jl7 - Home Meds: 11:07 Plavix Oral [Active]; jl7 - PMHx: 11:07 Hypertensive disorder; Hypercholesterolemia; cardiac stents; Right carotid stent; jl7 - Immunization history:: Adult Immunizations up to date. - Infectious Disease History:: Denies. - Social history:: Smoking status: Patient denies any tobacco usage or history of. - Family history:: not pertinent. ROS: 13:40 Constitutional: Negative for fever, chills, and weight loss, Eyes: Negative for injury, giancarlo pain, redness, and discharge, ENT: Negative for injury, pain, and discharge, Neck: Negative for injury, pain, and swelling, Cardiovascular: Negative for chest pain, palpitations, and edema, Respiratory: Negative for shortness of breath, cough, wheezing, and pleuritic chest pain, Abdomen/GI: Negative for abdominal pain, nausea, vomiting, diarrhea, and constipation, Back: Negative for injury and pain, : Negative for injury, bleeding, discharge, and swelling, Skin: Negative for injury, rash, and discoloration, Neuro: Negative for headache, weakness, numbness, tingling, and seizure, Psych: Negative for depression, anxiety, suicide ideation, homicidal ideation, and hallucinations, Allergy/Immunology: Negative for hives, rash, and allergies, Endocrine: Negative for neck swelling, polydipsia, polyuria, polyphagia, and marked weight changes, Hematologic/Lymphatic: Negative for swollen nodes, abnormal bleeding, and unusual bruising, 13:40 MS/extremity: Positive for decreased range of motion, pain, swelling, tenderness, of the left antecubital area, Exam: 13:40 Constitutional: This is a well developed, well nourished patient who is awake, alert, giancarlo and in no acute distress. Head/Face: Normocephalic, atraumatic. Eyes: Pupils equal round and reactive to light, extra-ocular motions intact. Lids and lashes normal. Conjunctiva and sclera are non-icteric and not injected. Cornea within normal limits. Periorbital areas with no swelling, redness, or edema. ENT: Nares patent. No nasal discharge, no septal abnormalities noted. Tympanic membranes are normal and external auditory canals are clear. Oropharynx with no redness, swelling, or masses, exudates, or evidence of obstruction, uvula midline. Mucous membranes moist. Neck: Trachea midline, no thyromegaly or masses palpated, and no cervical lymphadenopathy. Supple, full range of motion without nuchal rigidity, or vertebral point tenderness. No Meningismus. Chest/axilla: Normal chest wall appearance and motion. Nontender with no deformity. No lesions are appreciated. Cardiovascular: Regular rate and rhythm with a normal S1 and S2. No gallops, murmurs, or rubs. Normal PMI, no JVD. No pulse deficits. Respiratory: Lungs have equal breath sounds bilaterally, clear to auscultation and percussion. No rales, rhonchi or wheezes noted. No increased work of breathing, no retractions or nasal flaring. Abdomen/GI: Soft, non-tender, with normal bowel sounds. No distension or tympany. No guarding or rebound. No evidence of tenderness throughout. Back: No spinal tenderness. No costovertebral tenderness. Full range of motion. Male : Normal genitalia with no discharge or lesions. Skin: Warm, dry with normal turgor. Normal color with no rashes, no lesions, and no evidence of cellulitis. Neuro: Awake and alert, GCS 15, oriented to person, place, time, and situation. Cranial nerves II-XII grossly intact. Motor strength 5/5 in all extremities. Sensory grossly intact. Cerebellar exam normal. Normal gait. Psych: Awake, alert, with orientation to person, place and time. Behavior, mood, and affect are within normal limits. 13:40 Musculoskeletal/extremity: ROM: limited active range of motion due to pain, limited passive range of motion due to pain, in the left arm, Circulation is intact in all extremities. Pulses: are normal with no appreciated deficits, Sensation intact. Compartment Syndrome exam of affected extremity: is normal. DVT Exam: negative Homans' sign noted on exam, no appreciated bluish discoloration, no erythema, no increased warmth, pain, swelling, tenderness, Vital Signs: 11:05 BP 118 / 75; Pulse 63; Resp 17; Temp 97.8; Pulse Ox 95% ; FiO2 2 %; Weight 111.13 kg; jl7 Height 5 ft. 10 in. ; Pain 1/10; 14:04 BP 112 / 71; Pulse 64; Resp 18; Temp 98; Pulse Ox 96% on R/A; ph 11:05 Body Mass Index 35.15 (111.13 kg, 177.8 cm) [facility] 11:05 Pain Scale: Adult [facility] MDM: 10:26 Patient medically screened. giancarlo 13:43 Differential diagnosis: dislocation, closed fracture, contusion, abrasion, tendonitis. giancarlo Data reviewed: vital signs, nurses notes, radiologic studies, plain films. Consideration of Admission/Observation Escalation of care including admission/observation considered. I considered the following discharge prescriptions or medication management in the emergency department Medications were administered in the Emergency Department. See MAR. Independent interpretation of the following test(s) in the Emergency Department X-Ray: My interpretation is radial head fx. Test considered but Not performed: Labs: no labs. Historians other than the Patient: pt well informed. Care significantly affected by the following chronic conditions: Hypertension, Obesity, high chlesterol. Counseling: I had a detailed discussion with the patient and/or guardian regarding the historical points, exam findings, and any diagnostic results supporting the discharge/admit diagnosis, radiology results, the need for outpatient follow up, for definitive care, a family practitioner, a orthopedic surgeon. 04/20 11:10 Order name: XRAY Elbow LEFT 3 view; Complete Time: 13:34 [facility] 04/20 11:10 Order name: XRAY Wrist LEFT 2 view; Complete Time: 13:34 jl7 04/20 13:40 Order name: Sling; Complete Time: 14:02 giancarlo 04/20 13:40 Order name: Splint - Elbow - Posterior; Complete Time: 14:02 giancarlo 04/20 13:40 Order name: Ice pack; Complete Time: 14:02 [facility] Administered Medications: 14:01 Drug: Ibuprofen PO 600 mg PO once Route: PO; ph 14:04 Follow up: Response: No adverse reaction ph Disposition Summary: 04/20/24 13:46 Discharge Ordered Notes: Location: Home giancarlo Problem: new giancarlo Symptoms: have improved giancarlo Condition: Stable giancarlo Diagnosis - Fracture of head of radius giancarlo - Fall on same level, unspecified giancarlo - Sprain of carpal joint of left wrist giancarlo Followup: giancarlo - With: Private Physician - When: 2 - 3 days - Reason: Recheck today's complaints, Continuance of care, Re-evaluation by your physician Followup: giancarlo - With: Ciaran Parra MD - When: 2 - 3 days - Reason: Recheck today's complaints, Re-evaluation by your physician Discharge Instructions: - Discharge Summary Sheet giancarlo - Fall Prevention in the Home, Adult giancarlo - Radial Head Fracture giancarlo - Wrist Pain, Adult giancarlo - Radial Head Fracture, Sadf-lz-Khbh giancarlo - Wrist Sprain, Adult giancarlo - Wrist Pain, Pediatric giancarlo Forms: - Medication Reconciliation Form giancarlo - Antibiotic Education giancarlo - Prescription Opioid Use giancarlo - Patient Portal Instructions [facility] - Leadership Thank You Letter [facility] Prescriptions: - acetaminophen-codeine 300-30 mg Oral tablet - take 2 tablet ORAL route every 6 hours as needed for pain; 20 tablet; Refills: giancarlo 0, Product Selection Permitted - diclofenac sodium 50 mg Oral tablet, delayed release (enteric coated) - take 1 tablet ORAL route 3 times per day; 30 tablet; Refills: 0, Product [facility] Selection Permitted Signatures: Dispatcher [employer] Dhiraj Licea MD MD cha Hall, Patricia RN RN Enmanuel Hays RN RN jl7
[2024-04-20 15:34] VITALS: BP 112/71; TEMP 98; O2SAT 96
== END 2024-04-20 14:05 | disposition home or self-care (01) ==
LOC: ER 10:19
PROC: 2W3BX1Z Immobilization of Left Upper Arm using Splint (ICD-10-PCS; principal; 2024-04-20)
DX: S52.122A Displaced fracture of head of left radius, initial encounter for closed fracture (principal); S63.512A Sprain of carpal joint of left wrist, initial encounter; W18.30XA Fall on same level, unspecified, initial encounter
CPT/HCPCS: 99284